=== PATIENT | male | born 1960 | race Caucasian/White ===

== ENCOUNTER 2023-03-27 08:25 | Day surgery (SDC) | payer OTHER ==
[2023-03-26 08:20] LABS: HEMATOCRIT 46.4 % (39.0-48.0); HEMOGLOBIN 15.2 g/dL (13-16.00); MEAN CELL VOLUME 73.2 fL (80.0-100.00); MEAN CORPUSCULAR HGB CONC 32.8 g/dl (32.0-36.0); PLATELET COUNT 269 K/uL (150-450); RED BLOOD COUNT 6.34 M/uL (4.00-6.00); RED CELL DISTRIBUTION WIDTH 14.6 % (11.5-14.5)
[2023-03-26 08:55] LABS: CALCIUM 10.1 mg/dL (8.5-10.1); CREATININE SERUM 1.71 mg/dL (0.70-1.30); GFR 40.9; POTASSIUM 4.62 mEq/L (3.5-5.1)
[2023-03-26 09:47] LABS: INR 1.02; PARTIAL THROMBOPLASTIN TIME 32.5 SECONDS (22.0-34.0); PROTHROMBIN TIME 10.7 SECONDS (9.0-11.5)
[~2023-03-27] VITALS: Ht 177.8 cm; Wt 106.6 kg
[~2023-03-27 08:25] MED LIST: AMLOD PO; AVAPRO300 MG PO; BETIMOL5 ML; TOPROL XL50 M1 PO
== END 2023-03-27 16:15 | disposition home or self-care (01) ==
LOC: CIR.AMB 08:25
PROVIDERS: ATTEND Urology
DX: N20.0 Calculus of kidney (principal); Z20.822 Contact with and (suspected) exposure to COVID-19; I10 Essential (primary) hypertension; Z88.0 Allergy status to penicillin; Z88.8 Allergy status to other drugs, medicaments and biological substances

== ENCOUNTER 2023-06-04 16:40 | Emergency (ER) | payer OTHER ==
[~2023-06-04] VITALS: Ht 177.8 cm; Wt 104.3 kg
[2023-06-04 17:59] LABS: HEMATOCRIT 45.4 % (39.0-48.0); MEAN CELL VOLUME 74.2 fL (80.0-100.00); MEAN CORPUSCULAR HEMOGLOBIN 24.6 pg (27.00-32.0); MEAN CORPUSCULAR HGB CONC 33.1 g/dl (32.0-36.0); PLATELET COUNT 248 K/uL (150-450); RED BLOOD COUNT 6.12 M/uL (4.00-6.00); RED CELL DISTRIBUTION WIDTH 15.2 % (11.5-14.5)
[2023-06-04 18:00] LABS: CALCIUM 9.6 mg/dL (8.5-10.1); CREATININE SERUM 1.55 mg/dL (0.70-1.30); GFR 45.66; POTASSIUM 3.76 mEq/L (3.5-5.1)
[2023-06-04 18:01] LABS: PH,URINE 8.5 (5.0-8.0); URINE APPEARANCE Clear; URINE BILIRRUBIN Negative (NEGATIVE); URINE BLOOD Moderate; URINE COLOR Yellow; URINE GLUCOSE Negative (NEGATIVE); URINE LEUKOCYTE Trace; URINE NITRATE Negative; URINE PROTEIN 30 (NEGATIVE)
[2023-06-04 18:05] LABS: URINE BACTERIA 15.1 uL (0.0-1933); URINE EPITHELIAL CELLS 3.5 uL (0.0-38.8); URINE RBC 414.7 uL (0.0-20.8); URINE WBC 10.9 uL (0.0-23.2)
[2023-06-05] MEDS ORDERED: TAMS0.4C PO (07:28)
[2023-06-05] MEDS ORDERED: KETO10TA2 PO (07:28)
== END 2023-06-05 07:41 ==
LOC: ER 16:40
PROVIDERS: Emergency Medicine
DX: I10 Essential (primary) hypertension (principal); R10.9 Unspecified abdominal pain; Z88.0 Allergy status to penicillin; N20.1 Calculus of ureter; N20.0 Calculus of kidney